=== PATIENT | female | born 1990 | race Caucasian/White ===

== ENCOUNTER → 2020-12-31 16:24 | Outpatient (CLI) | payer BC, SELFPAY ==
--- NOTE | 2020-12-31 16:37 | ECG_ITS ---
APPROVED REPORT Exam: Resting ECG HR:56 bpm ECG Measurements Heart Rate 56 AXES MA 102 P 17 QRSd 86 QRS 126 QT 396 T 30 QTc 382 Conclusion Sinus bradycardia Right axis deviation Abnormal ECG Electronically signed by : Paul Bae, 01/06/2021 16:33:54
== END ==
PROVIDERS: PCP Internal Medicine; Visit Provider Internal Medicine
DX: R07.9 Chest pain, unspecified (principal)
CPT/HCPCS: 93005

== ENCOUNTER → 2022-02-09 15:32 | Outpatient (CLI) | payer BC, SELFPAY ==
--- NOTE | 2022-02-09 15:43 | XR_ITS ---
FINAL REPORT CLINICAL HISTORY: COVID OUT PATIENT, pt states that she was diagnosed with COVID on 01/28, she states she has been experiencing worsening chest pain over the last 2-3 days FINDINGS: TWO-VIEW CHEST The heart size is normal. The mediastinum is normal. There is an 11 mm nodule in left mid lung which is not definitely calcified. There is no pneumothorax. IMPRESSION: Left midlung nodule. Recommend follow-up radiographs or CT. Reviewed, Interpreted and Dictated by Rolf Xie III, MD Transcribed by Princess Calles Authenticated and [facility]
== END ==
PROVIDERS: PCP Internal Medicine; Visit Provider Internal Medicine
DX: Z20.822 Contact with and (suspected) exposure to COVID-19 (principal)
CPT/HCPCS: 71046; 87275; 87276; C9803; U0003; U0005

== ENCOUNTER → 2022-02-23 13:37 | Outpatient (CLI) | payer BC, SELFPAY ==
--- NOTE | 2022-02-23 13:44 | CT_ITS ---
FINAL REPORT TECHNIQUE: Axial images were obtained from the lung apex to the mid abdomen by computed tomography. Coronal reformatted images were obtained. This study was performed with techniques to keep radiation doses as low as reasonably achievable, (ALARA). Individualized dose reduction techniques using automated exposure control or adjustment of mA and/or kV according to the patient''s size were employed. CLINICAL HISTORY: LUNG NODULE, smoker COMPARISON: Chest radiograph dated February 09, 2022 FINDINGS: There are small mediastinal lymph nodes. There is no axillary adenopathy. There is no hilar adenopathy. Heart size is normal. There is no pericardial or pleural effusion. Limited images of the upper abdomen are unremarkable. There is a calcified nodule in the lateral left upper lobe measuring 10 mm and is consistent with a granuloma. No other mass or nodule is identified. IMPRESSION: 10 mm calcified granuloma in the left upper lobe. No other mass or nodule identified. Reviewed, Interpreted and Dictated by Rolf Xie III, MD Transcribed by Julia Francisco Authenticated and [facility]
== END ==
PROVIDERS: PCP Internal Medicine; Visit Provider Internal Medicine
DX: R91.1 Solitary pulmonary nodule (principal)
CPT/HCPCS: 71250

== ENCOUNTER → 2022-02-24 16:00 | Outpatient (CLI) | payer BC, SELFPAY ==
--- NOTE | 2022-02-24 16:07 | ECG_ITS ---
APPROVED REPORT Exam: Resting ECG HR:64 bpm ECG Measurements Heart Rate 64 AXES RI 120 P 42 QRSd 92 QRS 77 QT 379 T 48 QTc 388 Conclusion SINUS RHYTHM WITH MARKED SINUS ARRHYTHMIA POOR R WAVE PROGRESSION OTHERWISE A NORMAL EKG Electronically signed by : Paul Bae MD 03/24/2022 14:01:26
== END ==
PROVIDERS: PCP Internal Medicine; Visit Provider Internal Medicine
DX: R06.02 Shortness of breath (principal); R07.9 Chest pain, unspecified; R55 Syncope and collapse
CPT/HCPCS: 93005

== ENCOUNTER → 2022-03-22 13:23 | Outpatient (CLI) | payer BC, SELFPAY ==
--- NOTE | 2022-03-22 13:28 | CT_ITS ---
FINAL REPORT TECHNIQUE: Then section axial CT images of the chest were obtained with contrast. Three-D reformatted images were also obtained.This study was performed with techniques to keep radiation doses as low as reasonably achievable (ALARA). Individualized dose reduction techniques using automated exposure control or adjustment of mA and/or kV according to the patient''s size were employed. CLINICAL HISTORY: SOB; MID THORACIC PAIN COMPARISON: 02/23/2022 FINDINGS: There is no evidence of pulmonary embolism. There is no evidence of thoracic aortic aneurysm or dissection. Multiple small mediastinal nodes are stable. A calcified granuloma in the left upper lobe which is stable. There is mild bibasilar atelectasis. There are mild ground-glass opacities in the lung bases. Limited images of the upper abdomen are unremarkable. IMPRESSION: No evidence of pulmonary embolism. Mild bibasilar atelectasis with mild ground-glass opacities in the lung bases. Early pneumonia is not excluded. Reviewed, Interpreted and Dictated by Rolf Xie III, MD Transcribed by Cindi Zapata Authenticated and [facility]
[2022-03-22 13:51] LABS: Blood Urea Nitrogen 20 mg/dl (7-17); Estimated Glomerular Filt Rate 84 ml/min (>60); GFR (African American) 102 ML/MIN (>60)
== END ==
PROVIDERS: PCP Internal Medicine; Visit Provider Internal Medicine
DX: R06.02 Shortness of breath (principal); R09.1 Pleurisy; M54.6 Pain in thoracic spine
CPT/HCPCS: 36415; 71275; 82565; 84520; Q9967

== ENCOUNTER → 2022-10-15 15:17 | Outpatient (CLI) | payer BC, SELFPAY ==
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
== END ==
LOC: RAD 15:18
PROVIDERS: PCP Internal Medicine; Visit Provider Orthopaedic Surgery
DX: M25.551 Pain in right hip (principal)
CPT/HCPCS: 73502

== ENCOUNTER → 2022-10-29 16:18 | Outpatient (CLI) | payer BC, SELFPAY ==
--- NOTE | 2022-10-29 | XR_ITS ---
PROCEDURE INFORMATION: Exam: XR Right Ankle Exam date and time: 10/29/2022 4:28 PM Age: 32 years old Clinical indication: Injury or trauma; Fall; Work related; Blunt trauma; Ankle; Right; Additional info: Fall at work TECHNIQUE: Imaging protocol: Radiologic exam of the right ankle. Views: 3 or more views. COMPARISON: No relevant prior studies available. FINDINGS: Bones/joints: No acute fracture or dislocation. Ankle mortise is intact. Normal bone mineralization. Soft tissues: Normal. IMPRESSION: No acute findings.
--- NOTE | 2022-10-29 | XR_ITS ---
PROCEDURE INFORMATION: Exam: XR Right Knee Exam date and time: 10/29/2022 4:28 PM Age: 32 years old Clinical indication: Injury or trauma; Fall; Work related; Blunt trauma; Knee; Right; Additional info: Fall at work TECHNIQUE: Imaging protocol: Radiologic exam of the right knee. Views: 3 views. COMPARISON: No relevant prior studies available. FINDINGS: Bones/joints: No acute fracture or dislocation. The knee compartments are preserved. Normal bone mineralization. Soft tissues: No effusion or soft tissue swelling. IMPRESSION: No acute findings.
== END ==
LOC: RAD 16:21
PROVIDERS: PCP Internal Medicine; Visit Provider Internal Medicine
DX: M25.571 Pain in right ankle and joints of right foot (principal); M25.561 Pain in right knee; S89.91XA Unspecified injury of right lower leg, initial encounter
CPT/HCPCS: 73562; 73610

== ENCOUNTER 2023-10-11 10:05 | Outpatient (CLI) | payer BC, SELFPAY ==
--- NOTE | 2023-10-11 10:09 | XR_ITS ---
FINAL REPORT CLINICAL HISTORY: RT FOOT PAIN, FINDINGS: Right foot Three views were obtained. There is no acute fracture or dislocation. The joint spaces appear normal. No soft tissue abnormality is identified. There is a small plantar calcaneal spur. IMPRESSION: No acute process. Reviewed, Interpreted and Dictated by Rolf Xie III, MD Transcribed by Princess Calles Authenticated and [facility]
== END 2023-10-11 23:59 ==
LOC: RAD 10:07
PROVIDERS: PCP Internal Medicine; Visit Provider Internal Medicine
DX: M79.671 Pain in right foot (principal)
CPT/HCPCS: 73630

== ENCOUNTER 2025-04-12 14:44 | Outpatient (CLI) | payer BC, SELFPAY ==
--- OUTSIDE RECORDS SUMMARY | 2025-04-12 14:46 | XMS_ITS | Clinical Summary ---
Author Organization Healthcare Address [address] [place] [address] Care Team Providers Care [employer] Name Role Phone Paul Bae MD Primary Care Provider [phone] Immunizations Immunization Administration Dates Next Due Tdap 11/12/2018 Social History Tobacco Use Types Packs/Day Years Used Date Smoking Tobacco: Every Day Alcohol Use Standard Drinks/Week Comments No 0 (1 standard drink = 0.6 oz pur e alcohol) Comments Unknown Sex and Gender Information Value Date Recorded Sex Assigned at Not on file Legal Sex Female 7:14 PM EDT Gender Identity Not on file Sexual Orientation Not on file Last Filed Vital Signs Vital Sign Reading Time Taken Comments Blood Pressure 133/84 04/02/2020 11:54 AM EDT Pulse 69 04/02/2020 11:54 AM EDT Temperature 37 C (98.6 F) 04/02/2020 11:54 AM EDT Respiratory Rate 16 04/02/2020 11:54 AM EDT Oxygen Saturation - - Inhaled Oxygen Concentration - - Weight 90.7 kg (200 lb) 04/02/2020 11:54 AM EDT Height 160 cm (5' 3 ) 04/02/2020 11:54 AM EDT Body Mass Index 35.43 04/02/2020 11:54 AM EDT Plan of Treatment Not on file Care Teams [employer] Relationship Specialty Start Date End Date Paul Bae MD [address] [place] [address] PCP - General 12/19/20
[2025-04-12 16:01] LABS: Albumin Level 4.4 g/dl (3.5-5.0); Chloride 106 mmol/L (98-107); Potassium 4.2 mmoL/L (3.5-5.1); Sodium 137 mmol/L (136-145)
[2025-04-12 16:03] LABS: Blood Urea Nitrogen 8 mg/dl (7-17); Creatinine,Serum 0.70 mg/dl (0.52-1.04); Estimated Glomerular Filt Rate 96 ml/min (>60); GFR (African American) 117 ML/MIN (>60)
[2025-04-12 16:04] LABS: Alanine Aminotransferase 12 U/L (12-78); Albumin/Globulin Ratio 1.6 (1.1-1.8); Alkaline Phosphatase 57 U/L (38-126); Anion Gap 11.2 mEq/L (5-15); Aspartate Amino Transferase 23 U/L (14-36); Bilirubin,Total 0.4 mg/dl (0.2-1.3); Calcium 9.4 mg/dl (8.4-10.2); Carbon Dioxide 24 mmol/L (22.0-30.0); Globulin 2.8 g/dL (1.3-3.2); Glucose 94 mg/dl (74-100); Total Protein,Serum 7.2 g/dl (6.3-8.2)
== END 2025-04-12 23:59 | disposition home or self-care (01) ==
LOC: LAB 14:44
PROVIDERS: PCP Internal Medicine; Visit Provider Nurse Practitioner Obstetrics & Gynecology
DX: I10 Essential (primary) hypertension (principal); Z79.899 Other long term (current) drug therapy
CPT/HCPCS: 36415; 80053